=== PATIENT | male | born 1970 | race Caucasian/White ===

== ENCOUNTER 2016-10-22 07:10 | Inpatient (IN) | payer BC ==
[2016-10-22] MEDS ORDERED: ONDANSETRON 4 MG/2 ML VIAL IVP ONE ×2 (07:23→07:26)
[2016-10-22] MEDS ORDERED: MORPHINE SULFATE 4 MG/1 ML IVP ONE ×2 (07:23→07:26)
[2016-10-22] MEDS ORDERED: NITROGLYCERIN 0.4 MG SL TAB (BOTTLE OF 3) SL ONE (07:25)
[2016-10-22] MEDS ORDERED: Sodium Chloride 0.9% 1,000 ML PRIMARY IV ONE (07:26)
[2016-10-22] MEDS ORDERED: ASPIRIN 81 MG (BABY) CHEWABLE TABLET PO ONE (07:26)
[2016-10-22] MEDS: NITROGLYCERIN 0.4 MG SL TAB (BOTTLE OF 3) SL ONE ×4 (07:29→11:48)
--- NOTE | 2016-10-22 07:33 | PDOC ---
Chest Pain HPI - General Chief Complaint: Abdomen Pain Stated Complaint: abd pain Date Seen by Provider: 10/22/16 Time Seen by Provider: 07:28 Source: Patient Exam Limitations: POSITIVE: No limitations Treatment Prior to Arrival: REPORTS: None Nurse's Notes Reviewed & Considered: Yes - History of Present Illness Initial Comments: This very pleasant 46-year-old male comes in this morning complaining of chest pain. Yesterday patient had epigastric and chest pain that he described as gas pain that resolved this morning at 02 100 he awoke with return of pain in the epigastrium radiating through to his back and shoulder blades. His pain he describes as pressure and sharp. He has associated shortness of breath. He states that it is actually the shortness of breath that woke him. He has a history of recent travel 3 weeks ago from [place] to [facility]. He works for the sanitation department at the [email or web address] He denies smoking. He denies any headache, no sore throat, no nausea vomiting or diarrhea, no hematuria dysuria, no rashes. Body Location Affected: REPORTS: Chest, Abdomen Timing: REPORTS: Abrupt Duration: 4-6 hours Severity: Severe Context: REPORTS: Sleep Quality: REPORTS: Aching, "Pain", Stabbing, Pressure Radiation: REPORTS: Shoulder (R), Shoulder (L), Back Associated Symptoms: REPORTS: Shortness of Breath Modifying Factors: improves with: None Reported Similar Symptoms Previously: Yes (yesterday afternoon) Recently seen/treated/hospitalized: No Any Prior Injuries Related to Current Complaint?: No - Patient Home Medications Home Medications: Home Medications Ibuprofen 400 mg PO PRN PRN 09/12/15 - Patient Allergies Allergies/Adverse Reactions: Allergies Allergy/AdvReac Type Severity Reaction Status Date / Time No Known Allergies Allergy Verified 10/22/16 07:23 Past Medical History - heen HEENT History: Other (please comment) Additional HEENT History: WISDOM TEETH REMOVED Cardiovascular History: Denies History Respiratory History: Denies History Gastrointestinal History: GERD Genitourinary History: Denies History Endocrine History: Denies History Musculoskeletal History: Denies History Prosthesis or Implant: No Neurological History: Denies History Blood Disorders: Denies History Psychiatric History: Denies History History of Sexually Transmitted Diseases: No Cancer History: Denies History History of MDRO: No History of Other Communicable Diseases: No Alcohol Use: None Substance Use Type: None Previous Surgical History: Yes Type / Date of Surgery: COLLAR BONE FX/ TOE NAIL REMOVAL BILAT GREAT TOES/ WISDOM TEETH Anesthesia Reactions: No Malignant Hyperthermia: No Significant Family History: Cancer ROS - Limitations ROS Limitations: No Limitations Constitution: REPORTS: Denies Symptoms Cardiovascular: REPORTS: Chest Pain, Heart Palpitations Respiratory: REPORTS: Hurts To Breathe, Shortness Of Breath Neurological: REPORTS: Denies Neuro Symptoms Gastrointestinal: REPORTS: Abdominal Pain Endocrine: REPORTS: Denies Symptoms Musculoskeletal: REPORTS: Back Pain Genitourinary: REPORTS: Denies Symptoms Eyes: REPORTS: Denies Symptoms ENT: REPORTS: Denies Symptoms Skin: REPORTS: Denies Skin Symptoms Lympathic: REPORTS: Denies Lympathic Symptoms Immunologic: POSITIVE: Denies Symptoms Psychiatric: POSITIVE: Denies Psych Symptoms Chest Pain PE - General Appearance General Appearance: REPORTS: Alert, Cooperative, No Evidence of Trauma, Moderate Distress - HEENT HEENT: POSITIVE: Head Inspection Nml, Eyes Inspection Nml, Ears Inspection Nml, Nose Inspection Nml, Oral/Dental Inspect. Nml, Pharynx Inspect. Nml, PERRL, EOMI - Neck Neck: REPORTS: Normal Inspection - Respiratory Respiratory: REPORTS: No Respiratory Distress, Breath Sounds Normal, Chest Non- Tender - Cardiovascular Cardiovascular: REPORTS: Heart Sounds Normal, No Murmur, No Gallop, No Friction Rub, No JVD, Frequent Extrasystoles - Abdomen Abdomen: Soft: (All Quadrants), Normal Bowel Sounds: (All Quadrants), Denies Tenderness: (All Quadrants), No Splenomegaly: (All Quadrants), No Hepatomegaly: (All Quadrants), No Guarding: (All Quadrants), No Rebound: (All Quadrants), No Palpable Pulse: (All Quadrants), No Palpabale Mass: (All Quadrants), No Distention: (All Quadrants), No Rigidity: (All Quadrants) - Skin Skin: REPORTS: Intact, Normal For Race, Warm, Dry, No Rash - Extremities Extremity: Non-Tender: (All Extremities), Normal ROM: (All Extremities), Normal Inspection: (All Extremities), Pelvis Stable: (All Extremities) - Neurological / Psychological Neurological: POSITIVE: Oriented X3, Motor Normal, Sensation Normal Chest Pain Progress - Results Reviewed by me Lab Results:: Laboratory Results 10/22/16 Range/Units 07:17 WBC 5.01 (4.8-10.8) 10^3/uL RBC 5.42 (4.70-6.10) 10^6/uL Hgb 15.9 (14.0-18.0) g/dL Hct 44.6 (42.0-52.0) % MCV 82.3 (80-90) FL MCH 29.3 (27-31) PG MCHC 35.7 (33-37) g/dL RDW Std Deviation 41.9 (39-50) fL RDW Coeff of Lola 13.9 (11.5-14.5) % Plt Count 194 (140-350) 10*3/uL MPV 12.2 (7.4-12.2) FL Immature Gran % (Auto) 0.2 (0-5) % Neut % (Auto) 45.9 L (50-80) % Lymph % (Auto) 37.9 (10-50) % [place] % (Auto) 10.4 (5-15) % Eos % (Auto) 4.0 (0-8) % Baso % (Auto) 1.6 H (0-1) % Immature Gran # (Auto) 0.01 10*3/UL Neut # (Auto) 2.30 10*3/UL Lymph # (Auto) 1.90 10*3/uL [place] # (Auto) 0.52 (0.3-0.8) 10*3/UL Eos # (Auto) 0.20 10*3/UL Baso # (Auto) 0.08 10*3/UL WBC Morphology Comment Normal morphology (NORM) Plt Morphology Comment Normal morphology (NORM) RBC Morph Comment Normal morphology (NORM) D-Dimer 0.19 (0.00-0.59) mg/L Sodium 142 (135-145) meq/L Potassium 3.7 L (3.8-5.2) meq/L Chloride 106 (98-112) meq/L Carbon Dioxide 26 (23-33) meq/L Anion Gap 10 (5-20) BUN 13 (7-22) mg/dL Creatinine 1.4 (0.70-1.50) mg/dL Estimated GFR 55 (>60 ml/min/1.73m(2)) BUN/Creatinine Ratio 9.28 (6-20) Glucose 131 H (78-110) mg/dL Calculated Osmolality 295.0 H (267-292) mOsm/kg Calcium 9.9 (8.7-10.7) mg/dL Magnesium 2.0 (1.6-2.4) mg/dL Total Bilirubin 0.8 (0.3-1.2) mg/dL AST 39 (21-57) IU/L ALT 58 (21-72) IU/L Alkaline Phosphatase 99 (38-126) IU/L Troponin I 0.015 (< 0.040) ng/mL Total Protein 6.7 (6.1-8.0) g/dL Albumin 4.1 (3.5-4.8) g/dL Globulin 2.6 (2.50-4.10) g/dL Albumin/Globulin Ratio 1.50 (1.3-2.0) mg/g TSH 0.574 (0.2700-4.2000) uIU/mL Free T4 1.00 (0.93-1.71) ng/dL - Patient's Progress Pain Medication Addressed: POSITIVE: Yes Re-Examine Time: 08:15 (no improvement) Re-Examine Time:: 09:00 Status: POSITIVE: Unchanged MDM / ED Course: Patient was examined, an IV started, blood drawn and sent to the lab for studies , radiographic examinations and EKG were obtained. Findings: CBC is within normal limits. Comprehensive metabolic panel is unremarkable. TSH and T4 are normal. Chest x-ray per my interpretation is a normal chest radiograph with no acute cardiopulmonary decompensation. EKG per my interpretation shows a sinus bradycardia with a rate of [address] scan chest abdomen pelvis are pending. Assessment: Abdominal pain. Chest pain with normal enzymes and EKG as well as normal d-dimer. Plan: The end of my shift has occurred and I have turned over care to Dr. Dash Valenzuela. for assessment and plan please see his dictation. Quality Measure Initiative: CP/AMI: POSITIVE: EKG, ASA Quality Measure Initiative: CAP: POSITIVE: CXR or CT - Consult Counseled: POSITIVE: Patient, Family, RE: Lab Results Patient Care Time - Estimated PCT Patient Care Time (In Minutes): 45 Vital Signs - Recent Vital Signs Vital Signs: Vital Signs (Last 8 hours) Temp Pulse Resp BP Pulse Ox 10/22/16 07:11 95.6 F L 51 L 20 155/86 100 - VS Reviewed Vital Signs Reviewed: Yes Discharge Clinical Impression: Abdominal pain Discharge Disposition: Other (Care was transferred to Dr. Dash Valenzuela the oncoming emergency room physician at the end of my shift.) Condition: Fair Patient Instructions Given at Discharge: Acute Abdominal Pain (ED)
[2016-10-22 07:36] LABS: BASOPHILS % (AUTO) 1.6 % (0-1); HEMATOCRIT 44.6 % (42.0-52.0); HEMOGLOBIN 15.9 g/dL (14.0-18.0); MEAN CORPUSCULAR HEMOGLOBIN 29.3 PG (27-31); MEAN CORPUSCULAR HGB CONC 35.7 g/dL (33-37); MEAN CORPUSCULAR VOLUME 82.3 FL (80-90); MEAN PLATELET VOLUME 12.2 FL (7.4-12.2); MONOCYTES # (AUTO) 0.52 10*3/UL (0.3-0.8); MONOCYTES % (AUTO) 10.4 % (5-15); NEUTROPHILS % (AUTO) 45.9 % (50-80); RED BLOOD COUNT 5.42 10^6/uL (4.70-6.10)
[2016-10-22 07:37] LABS: BASOPHILS # (AUTO) 0.08 10*3/UL; PLATELET MORPHOLOGY COMMENT NORMAL MORPHOLOGY (NORM); RBC MORPHOLOGY COMMENT NORMAL MORPHOLOGY (NORM); WBC MORPHOLOGY COMMENT NORMAL MORPHOLOGY (NORM)
--- NOTE | 2016-10-22 07:37 | EKG ---
[address] [address] Measurements Intervals [place] Rate: 51 P: 8 NC: 161 QRS: 63 QRSD: 98 T: 32 QT: 422 QTc: 398 Interpretive Statements SINUS BRADYCARDIA No previous ECG available for comparison Electronically Signed On 10-23-16 08:05:46 MDT by Víctor Gonsalez MD [email or web address]
[2016-10-22 07:40] LABS: BUN/CREATININE RATIO 9.28 (6-20); CALCIUM 9.9 mg/dL (8.7-10.7); SERUM ALBUMIN 4.1 g/dL (3.5-4.8)
[2016-10-22] MEDS ORDERED: KETOROLAC 15 MG/1 ML VIAL IVP ONE (07:50)
[2016-10-22] MEDS ORDERED: LORazepam 2 MG/1 ML VIAL IVP ONE (07:51)
[2016-10-22] MEDS ORDERED: Famotidine Inj 20 MG in Normal Saline Flush 10 ML IVP ONE (08:24)
[2016-10-22] MEDS ORDERED: HYDROmorphone 2 MG/1 ML IVP ONE (08:24)
--- NOTE | 2016-10-22 09:58 | DI ---
HISTORY: Chest pain. COMPARISON: None. TECHNIQUE: Contiguous transaxial computed tomographic images were obtained of the Chest using pulmon belén embolism protocol with IV contrast. Coronal and sagittal reformat images were performed. FINDINGS: LUNGS: Clear. No consolidation, pleural effusion or pneumothorax. MEDIASTINUM: No acute pulmonary emboli or thoracic aortic dissection. The heart and great vessels a re normal. No mediastinal lymphadenopathy. The airway is patent. UPPER ABDOMEN: A limit evaluation of the upper abdomen was performed. There is cholelithiasis. BONES: Normal for age. IMPRESSION: 1. No acute pulmonary emboli or thoracic aortic dissection. 2. No consolidation, pleural effusion or pneumothorax.
--- NOTE | 2016-10-22 10:24 | DI ---
HISTORY: Chest pain. COMPARISON: None. FINDINGS: The heart is within normal limits with slight accentuation of the pulmonary vasculature in the bilateral lung bases. The lung rodriguez are otherwise essentially clear. IMPRESSION: 1. Slight accentuation of the pulmonary vasculature in bilateral lung bases.
--- NOTE | 2016-10-22 10:36 | DI ---
EXAM: CT Abdomen and Pelvis With Contrast TECHNIQUE: Contiguous transaxial computed tomographic images were obtained of the abdomen and pelvis per routine protocol with IV contrast. Coronal and sagittal reformat images were performed. COMPARISON: None. FINDINGS: LUNG BASES: Clear INFERIOR MEDIASTINUM: Unremarkable. LIVER: Normal in size and attenuation with no focal abnormalities. GALLBLADDER AND BILE DUCTS: There is cholelithiasis including a stone seen at the gallbladder neck. No biliary dilatation. SPLEEN: Normal in size and attenuation with no focal abnormalities. PANCREAS: Normal in size and attenuation with no focal abnormalities. ADRENALS: Normal in size and attenuation with no focal abnormalities. : Kidneys enhance normally with no focal abnormalities. No evidence of urinary obstruction or obst ructing urinary calculi. Ureters are normal throughout their course. Urinary bladder is within norm al limits. GI: No evidence of bowel obstruction or focal inflammation. No focal bowel wall thickening. Very m ild diverticulosis of the sigmoid colon. Normal appendix in the right lower quadrant. PELVIS: Within normal limits with no mass identified. VESSELS: Aorta is normal in size with no evidence of aneurysm or rupture. BONES: No acute bony abnormality. No suspicious osteolytic or osteoblastic lesion. Old healed frac ture of the left pubic rami. Moderate degenerative changes of the hips. Transitional lumbrosacral a natomy. SOFT TISUES: Unremarkable. IMPRESSION: 1. There is cholelithiasis including a stone seen at the gallbladder neck. Ultrasound is recommende d if there is concern for acute cholecystitis.
[2016-10-22] MEDS ORDERED: NORMAL SALINE 10 ML SYRINGE FLUSH IVP PRN ×2 (11:38→12:01)
[2016-10-22] MEDS ORDERED: LIDOCAINE W/ SODIUM BICARB 0.5 ML SYR SUBD PRN ×2 (11:38→12:01)
[2016-10-22] MEDS ORDERED: ONDANSETRON 4 MG/2 ML VIAL IVP PRN (11:38)
--- NOTE | 2016-10-22 11:51 | PDOC ---
History and Physical - History of Present Illness Date and Time of Service: 10/22/2016 11:46 AM Chief Complaint: Epigastric pain that started 2 AM this morning History of Present Illness: This is a 46 years old male with no significant past medical history except reflux who came into the hospital because of epigastric pain. He said yesterday he started to have some discomfort is his abdomen and he attributed that to gas and he was able to get rid of some of the gas and that's relieved his discomfort then he woke up this morning about 2 AM with pain in the upper abdomen and went to his back, he described the pain as severe constant 9 out of 10 he was sweating and he thought he needed to have a bowel movement had 2 small bowel movement however the pain was not relieved so he took some ibuprofen but he continued to have the pain and because of that he came into the ER. He never had this kind of pain before, taking a deep breath would make the pain worse, evaluation in the ER revealed normal CBC and chemistry, had a CT of the abdomen and pelvis and also CT of the chest did show evidence of cholelithiasis and one of the stones in the neck of the gallbladder. He did receive multiple pain medication and that helped lessen his pain. Because of the finding of the gallstones it was discussed with the surgeon who suggested admission. Currently he rates his pain maybe 2 out of 10. There is no nausea or vomiting or diarrhea. No other symptoms. Past Medical History Medical History: GERD on Nexium Surgical History: [place] teeth removal Family History: Reviewed an Not Pertinent Past Social History: He doesn't smoke, doesn't drink, no drugs. Tobacco Use: Never Smoker Substance Use Type: None Alcohol Use: None Medication / Allergies Home Medications: Home Medications Medication Instructions Recorded Confirmed Type Ibuprofen 400 mg PO PRN PRN 09/12/15 10/22/16 History Allergies/Adverse Reactions: Allergies Allergy/AdvReac Type Severity Reaction Status Date / Time No Known Allergies Allergy Verified 10/22/16 07:23 Review of Systems - Review of Systems All Systems: Reviewed & No Additional Complaints Except as Stated Exam - Vitals Vital Signs: Vital Signs Temperature 97.8 F Temperature Source Temporal Artery Scan Pulse Rate [Pulse Oximeter 50 Right] Pulse Rate 43 Respiratory Rate 19 Blood Pressure [Left Arm] 122/61 Blood Pressure 112/66 Pulse Ox 100 Oxygen Delivery Method Room Air Height 6 ft 2 in Weight 267 lb 9.6 oz - General General Appearance: POSITIVE: No Acute Distress, Cooperative, Obese - Head Head Exam: POSITIVE: Normal Inspection, Atraumatic - Eye Eye Exam: POSITIVE: Normal Appearance - ENT ENT Exam: POSITIVE: Normal Exam - Neck Neck Exam: POSITIVE: Normal Inspection - Respiratory Respiratory Exam: POSITIVE: Clear to Auscultation - Bilaterally - Cardiovascular Cardiovascular Exam: POSITIVE: RRR - GI/Abdominal GI/Abdominal Exam: POSITIVE: Normal Bowel Sounds, Non Distended, Soft, No Organomegaly. NEGATIVE: Rebound Additional GI/Abdominal Exam Details: Some mild tenderness in the epigastrium and the right upper quadrant - Rectal Rectal Exam: POSITIVE: Deferred - External Exam: POSITIVE: Deferred - Extremities Extremities Exam: POSITIVE: Normal Inspection, Full ROM - Back Back Exam: POSITIVE: Normal Inspection - Neurological Neurological Exam: POSITIVE: Alert, Oriented x 3, CN II-XII Intact, Speech Intact / Clear, Moves All Extremities Equally - Psychiatric Psychiatric Exam: POSITIVE: Normal Affect - Integumentary Integumentary Exam: POSITIVE: Normal Color Results - Labs CBC and BMP: 10/22/16 07:17 10/22/16 07:17 - EKG Data -: EKG Interpreted by Me (EKG showed sinus bradycardia) - Imaging Status: Report Reviewed by Me (CT of the abdomen and pelvis shows cholelithiasis including a stone seen at the gallbladder neck, CT of the chest no evidence of PE, no consolidation) Assessment and Plan - Patient Problems (1) Abdominal pain Current Visit: Yes Status: Acute Comment: This looks secondary to cholelithiasis, did discuss that with Dr. Saul his plan to do surgery tomorrow. Will write for pain medication put on some IV fluid. (2) Bradycardia Current Visit: Yes Status: Acute Comment: There is sinus bradycardia noted on the EKG when he came in. His first troponin is negative and his description of the pain does not fit cardiac etiology. There are no EKG changes apart from the bradycardia noted. Will repeat his enzymes. Will watch his rhythm. TSH is normal.
--- NOTE | 2016-10-22 12:01 | CONSULT ---
Consult Note - Consult Consult Date: 10/22/16 Reason for Consult: PreOp Consulation : General Surgery Requesting Physician: Dr. Moody and Dr. Bowling Primary Care Provider: Edison Montiel MD - History of Present Illness History of Present Illness: This 46-year-old male who has a one-day history of right upper quadrant abdominal pain that radiates straight to his back. There is no fever no chills no nausea vomiting diarrhea constipation hematochezia and no hematemesis no melena. He denies fever or chills. Denies ever being jaundice. Patient's laboratory values are unremarkable. Patient is CT scan of the abdomen shows cholelithiasis with a stone stuck in the neck of the gallbladder no other abnormal pathology seen. Had lifted a CT scan agree with the radiologist's interpretation Review of Systems - Constitutional Constitutional: REPORTS: Negative System Review - Integumentary Integumentary: REPORTS: Negative System Review - Ear/Nose Exam Ear/Nose Exam: REPORTS: Negative System Review - Respiratory Respiratory: REPORTS: Negative System Review - Cardiovascular Cardiovascular: REPORTS: Negative System Review - Gastrointestinal Gastrointestinal / Abdominal: REPORTS: Negative System Review, Abdominal Pain - Genitourinary Genitourinary: REPORTS: Negative System Review - Musculoskeletal Musculoskeletal: REPORTS: Negative System Review - Hematlogic / Lymphatic Hematologic / Lymphatic: REPORTS: Negative System Review - Neurological Neurologic: REPORTS: Negative System Review - Psychiatric Psychiatric: DENIES: Anhedonia, Anxiety, Depressed, Hopelessness, Hospitalization, Negative System Review, Other, Panic, Sadness, See HPI, Suicidality, Tearfullness Past Medical History Medical History: GERD on Nexium Surgical History: [place] teeth removal Family History: Reviewed an Not Pertinent Past Social History: He doesn't smoke, doesn't drink, no drugs. Tobacco Use: Never Smoker Substance Use Type: None Alcohol Use: None Medication / Allergies Home Medications: Home Medications Medication Instructions Recorded Confirmed Type Ibuprofen 400 mg PO PRN PRN 09/12/15 10/22/16 History Allergies/Adverse Reactions: Allergies Allergy/AdvReac Type Severity Reaction Status Date / Time No Known Allergies Allergy Verified 10/22/16 07:23 Exam - Vitals Vital Signs: Vital Signs Temperature 97.8 F Temperature Source Temporal Artery Scan Pulse Rate [Pulse Oximeter 50 Right] Pulse Rate 43 Respiratory Rate 19 Blood Pressure [Left Arm] 122/61 Blood Pressure 112/66 Pulse Ox 100 Oxygen Delivery Method Room Air Height 6 ft 2 in Weight 121.381 kg - General General Appearance: POSITIVE: No Acute Distress, Cooperative - Head Head Exam: POSITIVE: Normal Inspection - Eye Eye Exam: POSITIVE: PERRL, EOMI - Neck Neck Exam: POSITIVE: Full ROM - Respiratory Respiratory Exam: POSITIVE: Clear to Auscultation - Bilaterally, Breathing Non Labored - Cardiovascular Cardiovascular Exam: POSITIVE: RRR, No Murmur - GI/Abdominal GI/Abdominal Exam: POSITIVE: Normal Bowel Sounds, Non Tender, Non Distended - Rectal Rectal Exam: POSITIVE: Deferred - External Exam: POSITIVE: Deferred - Extremities Extremities Exam: POSITIVE: Full ROM - Back Back Exam: POSITIVE: Full ROM - Neurological Neurological Exam: POSITIVE: Alert, Oriented x 3, Reflexes Normal, Normal Gait, CN II-XII Intact, No Facial Droop, Speech Intact / Clear, Moves All Extremities Equally, No Fasciculations, No Clonus - Psychiatric Psychiatric Exam: POSITIVE: Normal Affect - Integumentary Integumentary Exam: POSITIVE: Normal Color Results - Labs CBC and BMP: 10/22/16 07:17 10/22/16 07:17 Assessment and Plan - Patient Problems (1) Abdominal pain Current Visit: Yes Status: Acute (2) Cholelithiasis Current Visit: Yes Status: Acute - Assessment / Plan Additional Assessment/Plan Details: I would recommend the patient having a laparoscopic cholecystectomy. I have discussed the pathophysiology about gallstones and gallbladder disease. I have discussed the risk of surgery and the potential complications that could occur with the surgery. I also discussed alternative treatment options. I have gone over the surgical technique with the patient. The patient understands this information. I also discussed the difference between single site using the da Sunitha surgery and also the traditional laparoscopic surgery. The patient be scheduled at the first available date. Questions that the patient had were answered. The patient evaluate if the bradycardia make sure that there is no heart block are he's having a silent VT. Patient is on telemetry and will have serial troponins
[2016-10-22] MEDS ORDERED: Lactated Ringers 1,000 ML PRIMARY IV SCH (12:15)
[2016-10-22] MEDS ORDERED: CefOXitin Inj 2 GM in Sodium Chloride 0.9% 100 ML IV SCH (12:15)
[2016-10-22] MEDS: Sodium Chloride 0.9% 1,000 ML PRIMARY IV SCH ×2 (12:37→19:55)
[2016-10-22] MEDS: MORPHINE SULFATE 2 MG/1 ML IVP PRN ×3 (12:54→18:38)
--- NOTE | 2016-10-22 14:09 | PDOC ---
Transfer of Care - Care Accepted Time Care Transferred: 09:00 Report from Transferring Physician Received: Yes (Dr. Osorio) MDM / ED Course: The patient is a 46-year-old male who presents to the emergency department with upper abdominal/lower chest pain that radiates to his back. He was initially evaluated per Dr. Osorio. On initial presentation the patient appeared to be having significant pain. His initial EKG showed sinus bradycardia with no acute ST segment or T-wave changes. He was given several doses of morphine and Zofran without really any significant relief. His initial blood work including CBC, CMP, lipase, d-dimer and troponin were all unremarkable. Because of continued severe pain the patient received IV Dilaudid and Pepcid and CTA of the chest and CT of the abdomen and pelvis with IV contrast was ordered. These studies are pending at the time that patient care was transferred. The patient states that he had some similar pain yesterday although it was not as severe and lasted only a short period of time. He is generally healthy otherwise. He denies any history of hypertension, diabetes, hyperlipidemia or heart disease. He did just recently travel to and from [place]. He has had previous EGD about a year and a half ago which he states was unremarkable. He does take Nexium. He does admit to drinking a fair amount of ice tea. He does not have any tobacco usage. Home Medications: Home Medications Ibuprofen 400 mg PO PRN PRN 09/12/15 Allergies/Adverse Reactions: Allergies No Known Allergies Allergy (Verified 10/22/16 07:23) Vital Signs Reviewed: Yes Nurse's Notes Reviewed & Considered: Yes - Pending Patient Care Items Pending Patient Care Items: POSITIVE: CT / MRI Results - Re-Evaluation of Patient Disposition of Patient: POSITIVE: Admitted Counseled: POSITIVE: Patient, Family, RE: Lab Results, RE: Radiology Results, RE : DX Clinical Impression Documented: Yes - Results Reviewed Lab Results: Laboratory Results 10/22/16 Range/Units 07:17 WBC 5.01 (4.8-10.8) 10^3/uL RBC 5.42 (4.70-6.10) 10^6/uL Hgb 15.9 (14.0-18.0) g/dL Hct 44.6 (42.0-52.0) % MCV 82.3 (80-90) FL MCH 29.3 (27-31) PG MCHC 35.7 (33-37) g/dL RDW Std Deviation 41.9 (39-50) fL RDW Coeff of Lola 13.9 (11.5-14.5) % Plt Count 194 (140-350) 10*3/uL MPV 12.2 (7.4-12.2) FL Immature Gran % (Auto) 0.2 (0-5) % Neut % (Auto) 45.9 L (50-80) % Lymph % (Auto) 37.9 (10-50) % [place] % (Auto) 10.4 (5-15) % Eos % (Auto) 4.0 (0-8) % Baso % (Auto) 1.6 H (0-1) % Immature Gran # (Auto) 0.01 10*3/UL Neut # (Auto) 2.30 10*3/UL Lymph # (Auto) 1.90 10*3/uL [place] # (Auto) 0.52 (0.3-0.8) 10*3/UL Eos # (Auto) 0.20 10*3/UL Baso # (Auto) 0.08 10*3/UL WBC Morphology Comment Normal morphology (NORM) Plt Morphology Comment Normal morphology (NORM) RBC Morph Comment Normal morphology (NORM) D-Dimer 0.19 (0.00-0.59) mg/L Sodium 142 (135-145) meq/L Potassium 3.7 L (3.8-5.2) meq/L Chloride 106 (98-112) meq/L Carbon Dioxide 26 (23-33) meq/L Anion Gap 10 (5-20) BUN 13 (7-22) mg/dL Creatinine 1.4 (0.70-1.50) mg/dL Estimated GFR 55 (>60 ml/min/1.73m(2)) BUN/Creatinine Ratio 9.28 (6-20) Glucose 131 H (78-110) mg/dL Calculated Osmolality 295.0 H (267-292) mOsm/kg Calcium 9.9 (8.7-10.7) mg/dL Magnesium 2.0 (1.6-2.4) mg/dL Total Bilirubin 0.8 (0.3-1.2) mg/dL AST 39 (21-57) IU/L ALT 58 (21-72) IU/L Alkaline Phosphatase 99 (38-126) IU/L Troponin I 0.015 (< 0.040) ng/mL Total Protein 6.7 (6.1-8.0) g/dL Albumin 4.1 (3.5-4.8) g/dL Globulin 2.6 (2.50-4.10) g/dL Albumin/Globulin Ratio 1.50 (1.3-2.0) mg/g Lipase 72 (23-300) IU/L TSH 0.574 (0.2700-4.2000) uIU/mL Free T4 1.00 (0.93-1.71) ng/dL EKG Interpreted/Reviewed By Me:: Yes EKG Interpretation:: POSITIVE: Normal QRS, Normal ST/T, Other (sinus bradycardia with no evidence of block, ST segment or T-wave changes) - Consult Consult (If Yes, Name of Consulting MD & Time Called): Yes (Dr. Saul, will see patient in the hospital) Recommendations:: On my reevaluation the patient the patient had just returned from [place]. He did finally get some relief after administration of Pepcid and Dilaudid however he states he still had some significant epigastric discomfort. He remained bradycardic with a rate in the 40s when he is awake and talking, this dips down into the upper 30s when he is asleep. His blood pressure remains normal. CT scan of the abdomen and pelvis as well as CT of the chest reveals no evidence of PE, aortic dissection area and he does however have multiple gallstones with one large stone at the neck of the gallbladder, no other acute findings per radiologist. The patient's pain at this point is most likely secondary to cholelithiasis and biliary colic. He is still having significant pain and therefore Dr. Saul was consulted from general surgery. He recommended admission and will likely make preparations to do a cholecystectomy tomorrow. Because of the patient's bradycardia he recommended having the hospitalist admit the patient and evaluate this. At this time the patient's bradycardia is thought to be attributed to vagal stimulation from pain. He does not have any significant cardiac history, troponin is normal and there is no evidence of block. He does not take any medications that would slow his heart rate. Dr. Moody was contacted and he has agreed to admit the patient. Patient Care Time - Estimated PCT Patient Care Time (In Minutes): 30 Vital Signs - Recent Vital Signs Vital Signs: Vital Signs (Last 8 hours) Temp Pulse Pulse Pulse Resp BP BP 10/22/16 11:23 96.7 F L 43 L 16 112/66 10/22/16 11:17 45 L 10/22/16 07:11 95.6 F L 51 L 20 155/86 Pulse Ox 10/22/16 11:23 95 10/22/16 11:17 10/22/16 07:11 100 - VS Reviewed Vital Signs Reviewed: Yes Discharge Clinical Impression: Biliary colic, Abdominal pain, Sinus bradycardia Discharge Disposition: Admit to Inpatient Condition: Fair Date Decision to Admit to Inpatient: 10/22/16 Time Decision to Admit to Inpatient: 10:45
[2016-10-23] MEDS: Sodium Chloride 0.9% 1,000 ML PRIMARY IV SCH ×2 (02:13→10:50)
[2016-10-23 05:30] LABS: BASOPHILS # (AUTO) 0.04 10*3/UL; BASOPHILS % (AUTO) 0.5 % (0-1); EOSINOPHILS # (AUTO) 0.12 10*3/UL; EOSINOPHILS % (AUTO) 1.5 % (0-8); HEMATOCRIT 42.4 % (42.0-52.0); HEMOGLOBIN 14.6 g/dL (14.0-18.0); MEAN CORPUSCULAR HEMOGLOBIN 29.2 PG (27-31); MEAN CORPUSCULAR HGB CONC 34.4 g/dL (33-37); MEAN CORPUSCULAR VOLUME 84.8 FL (80-90); MEAN PLATELET VOLUME 12.7 FL (7.4-12.2); MONOCYTES # (AUTO) 0.83 10*3/UL (0.3-0.8); MONOCYTES % (AUTO) 10.4 % (5-15); NEUTROPHILS # (AUTO) 5.14 10*3/UL; NEUTROPHILS % (AUTO) 64.7 % (50-80); PLATELET MORPHOLOGY COMMENT NORMAL MORPHOLOGY (NORM); RBC MORPHOLOGY COMMENT NORMAL MORPHOLOGY (NORM); WBC MORPHOLOGY COMMENT NORMAL MORPHOLOGY (NORM)
[2016-10-23 05:31] LABS: BLOOD UREA NITROGEN 10 mg/dL (7-22); BUN/CREATININE RATIO 9.09 (6-20); CALCIUM 8.6 mg/dL (8.7-10.7); EST GLOMERULAR FILTRATION > 60 (>60 ml/min/1.73m(2)); LIPASE 27 IU/L (23-300); SERUM ALBUMIN 3.5 g/dL (3.5-4.8)
[2016-10-23] MEDS ORDERED: CefOXitin Inj 2 GM in Sodium Chloride 0.9% 100 ML IV ONE (06:00)
[2016-10-23] MEDS ORDERED: Lactated Ringers 1,000 ML PRIMARY IV SCH ×2 (06:00→13:31)
[2016-10-23] MEDS ORDERED: Sodium Chloride 0.9% vial 20 ML ONE (07:51)
[2016-10-23] MEDS ORDERED: BUPIVACAINE 0.25% W/ EPI - 10 ML VIAL ONE (07:51)
--- NOTE | 2016-10-23 08:11 | PDOC(PROG) ---
Date and Time of Service: 10/23/2016 8:10 AM Interval History: Subjective His abdominal pain is gone, no chest pain no shortness of breath. Had some headaches but otherwise no other symptoms. Objective : Data - Labs CBC and BMP: 10/23/16 04:50 10/23/16 04:50 Labs - Last 24 Hours: Laboratory Results 10/22/16 10/22/16 10/23/16 Range/Units 13:35 21:23 04:50 WBC 7.95 (4.8-10.8) 10^3/uL RBC 5.00 (4.70-6.10) 10^6/uL Hgb 14.6 (14.0-18.0) g/dL Hct 42.4 (42.0-52.0) % MCV 84.8 (80-90) FL MCH 29.2 (27-31) PG MCHC 34.4 (33-37) g/dL RDW Std Deviation 42.6 (39-50) fL RDW Coeff of Lola 14.0 (11.5-14.5) % Plt Count 161 (140-350) 10*3/uL MPV 12.7 H (7.4-12.2) FL Immature Gran % (Auto) 0.3 (0-5) % Neut % (Auto) 64.7 (50-80) % Lymph % (Auto) 22.6 (10-50) % [place] % (Auto) 10.4 (5-15) % Eos % (Auto) 1.5 (0-8) % Baso % (Auto) 0.5 (0-1) % Immature Gran # (Auto) 0.02 10*3/UL Neut # (Auto) 5.14 10*3/UL Lymph # (Auto) 1.80 10*3/uL [place] # (Auto) 0.83 H (0.3-0.8) 10*3/UL Eos # (Auto) 0.12 10*3/UL Baso # (Auto) 0.04 10*3/UL WBC Morphology Comment Normal morphology (NORM) Plt Morphology Comment Normal morphology (NORM) RBC Morph Comment Normal morphology (NORM) Sodium 139 (135-145) meq/L Potassium 3.9 (3.8-5.2) meq/L Chloride 106 (98-112) meq/L Carbon Dioxide 25 (23-33) meq/L Anion Gap 8 (5-20) BUN 10 (7-22) mg/dL Creatinine 1.1 (0.70-1.50) mg/dL Estimated GFR > 60 (>60 ml/min/1.73m(2)) BUN/Creatinine Ratio 9.09 (6-20) Glucose 89 (78-110) mg/dL Calculated Osmolality 285.0 (267-292) mOsm/kg Calcium 8.6 L (8.7-10.7) mg/dL Total Bilirubin 2.1 H (0.3-1.2) mg/dL AST 30 (21-57) IU/L ALT 46 (21-72) IU/L Alkaline Phosphatase 79 (38-126) IU/L Troponin I < 0.012 0.014 (< 0.040) ng/mL Total Protein 5.9 L (6.1-8.0) g/dL Albumin 3.5 (3.5-4.8) g/dL Globulin 2.4 L (2.50-4.10) g/dL Albumin/Globulin Ratio 1.40 (1.3-2.0) mg/g Lipase 27 (23-300) IU/L Objective : Exam - General General Appearance: No Acute Distress, Cooperative, Obese - Head Head Exam: Normal Inspection, Atraumatic - Eye Eye Exam: Normal Appearance - ENT ENT Exam: Normal Exam - Neck Neck Exam: Normal Inspection - Respiratory Respiratory Exam: Clear to Auscultation - Bilaterally - Cardiovascular Cardiovascular Exam: RRR - GI/Abdominal GI/Abdominal Exam: Normal Bowel Sounds, Non Tender, Non Distended, Soft - Rectal Rectal Exam: Deferred - External Exam: Deferred - Extremities Extremities Exam: Normal Inspection - Back Back Exam: Normal Inspection - Neurological Neurological Exam: Alert, Oriented x 3, CN II-XII Intact, Speech Intact / Clear , Moves All Extremities Equally - Psychiatric Psychiatric Exam: Normal Affect Assessment and Plan - Patient Problems (1) Abdominal pain Current Visit: Yes Status: Acute Comment: This is secondary to cholelithiasis, his pain is resolved. He is scheduled for surgery today. He is nothing by mouth. There is minimal rise in the bilirubin, will check the direct level to see whether this is predominantly indirect and may be secondary to fasting. (2) Bradycardia Current Visit: Yes Status: Acute Comment: Still sinus bradycardia. Troponin remained negative. As I said yesterday I spoke with the health support specialist and does not think he needs more testing.
[2016-10-23] MEDS ORDERED: LIDOCAINE MPF 2% - 5 ML (20 MG/1 ML) ONE (10:38)
[2016-10-23] MEDS ORDERED: fentaNYL Inj 250 MCG/5 ML VIAL ONE (10:38)
[2016-10-23] MEDS ORDERED: MIDAZOLAM 5 MG/1 ML ONE (10:38)
[2016-10-23] MEDS ORDERED: ROCURONIUM 10 MG/1 ML - 5 ML VIAL IVP ONE (10:39)
[2016-10-23] MEDS ORDERED: Iothalamate Meglumine 30 ML VIAL IV ONE (10:41)
[2016-10-23] MEDS ORDERED: Bacteriostatic NaCl Inj 30ml Vial ONE (10:41)
[2016-10-23] MEDS ORDERED: PANTOPRAZOLE IV 40 MG VIAL ONE (10:48)
[2016-10-23] MEDS ORDERED: Sodium Chloride 0.9% 100 ML IV ONE (10:52)
[2016-10-23] MEDS ORDERED: Lactated Ringers 1,000 ML PRIMARY IV ONE (11:23)
[2016-10-23] MEDS ORDERED: KETOROLAC 30 MG/1 ML VIAL ONE (11:44)
[2016-10-23] MEDS ORDERED: SUGAMMADEX SODIUM 200 MG/2 ML VIAL IV ONE (11:44)
--- NOTE | 2016-10-23 12:36 | GEN.OPNOTE ---
Operative Note Surgery Date: 10/23/16 Preoperative Diagnosis: Cholelithiasis Postoperative Diagnosis: Cholelithiasis with necrosis of the gallbladder wall Procedure: Laparoscopic cholecystectomy with intraoperative cholangiogram Surgeon: Carson Saul MD Supervisor Stone: Izaiah Brooks MD Anesthesia Provider: Marty Headley CRNA Anesthesia Type: General Estimated Blood Loss (mL): 10 Fluids: Mefoxin 2 g. Lactated Ringer's please anesthesia notes in EMR Pathology: Gallbladder was sent with multiple large black stones Indications: Patient came in with right upper quadrant abdominal pain CT scan showed the patient had cholelithiasis without evidence of acute cholecystitis Findings: Patient had necrotic gallbladder. There is no stone seen in the common bile duct on intraoperative cholangiogram Complications: None Operative Summary: Patient was brought in the operating room. Placed in supine position. Given general anesthetic. Was prepped draped sterile fashion. Quarter percent Marcaine was infiltrated at all trocar sites. Small incision made below the umbilicus. Veress needle inserted pneumoperitoneum obtained. After adequate pneumoperitoneum a 10 mm trocar was placed using the Visiport. Under direct laparoscopic visualization a 10 mm trocar subxiphoid and 2 -5 mm in the midclavicular and midaxillary line. Appropriate instrument were placed. The gallbladder appeared to be necrotic. Gallbladder grasped at the fundus retracted over the liver edge. Gallbladder was grasped at Yolanda's pouch. The cystic duct was dissected free. The cystic duct was clipped near the gallbladder. Intraoperative cholangiocatheter was placed through an angiocatheter. I then opened up the cystic duct with scissors. Intraoperative cardiogram catheter was placed. C-arm was brought in an intraoperative cholangiogram was then done with the aid of the C-arm. There is no evidence of obstruction of the common bile duct and proper anatomy was identified. The C- arm was removed. The cholangiogram was then removed. The cystic duct was doubly clipped and divided. Likewise the cystic artery was dissected free 3 hemoclips placed and divided. The gallbladder was dissected off liver's edge using electrocautery. There is an opening made into the gallbladder that drop multiple black stones. The smaller stones were removed with stone forceps. The 3 larger ones were placed where they can be retrieved. The gallbladder was placed in a laparoscopic retrieval bag. Likewise the remaining stones were placed in the bag. The gallbladder was then removed through a subumbilical incision. The abdominal cavity was irrigated until clear. The trochars were removed. The umbilicus incision was closed with 0 Vicryl suture to the fascia. The skin was reapproximated using 4-0 Vicryl simple sutures. The remainder trocar sites were 5 mm defects we will close. The remainder skin incisions closed with 4-0 Vicryl. Steri-Strips applied sterile dressings applied. Patient transferred to recovery room in stable condition. Counts were correct Patient Problems - Patient Problem List (1) Abdominal pain Current Visit: Yes Status: Acute (2) Cholelithiasis Current Visit: Yes Status: Acute
[2016-10-23] MEDS ORDERED: NORMAL SALINE 10 ML SYRINGE FLUSH IVP PRN (12:39)
[2016-10-23] MEDS: HYDROmorphone 2 MG/1 ML IVP PRN ×2 (12:56→13:25)
[2016-10-23] MEDS ORDERED: MORPHINE SULFATE 2 MG/1 ML IVP PRN (13:31)
[2016-10-23] MEDS ORDERED: HYDROcodone-APAP 7.5 MG-325 MG TABLET PO PRN (13:31)
[2016-10-23] MEDS ORDERED: ONDANSETRON 4 MG/2 ML VIAL IVP PRN (13:31)
[2016-10-23] MEDS ORDERED: IBUPROFEN 400 MG TABLET PO PRN (14:17)
--- NOTE | 2016-10-23 14:40 | DI ---
XR CHOLANGIOGRAM INTRAOP,10/23/2016 9:11 AM: Clinical History: Gallstones Previous Exam: None at this facility. Findings: A normal-appearing common bile duct without filling defects. The pancreatic duct is normal throughout its visualized portions. There is free flow of contrast into the proximal duodenum. Impression: Normal intraoperative cholangiogram.
[2016-10-23 15:21] VITALS: TEMP 97.4
--- NOTE | 2016-10-23 17:27 | DCSUMMARY ---
Discharge Summary Admit Date: 10/22/16 Discharge Date: 10/23/16 Admitting Diagnosis: cholelithiasis, bradycardia Discharge Diagnosis: Gangrenous gallbladder with cholelithiasis Primary Surgery and Date: Laparoscopic cholecystectomy on 10/23/2016 Hospital Course: Patient is admitted the hospital because of acute abdominal pain and cholelithiasis. He had bradycardia this was followed with serial troponins which were normal. EKG is unremarkable. Telemetry did not show any heart blocks. He was taken to surgery on the . He is found to have a gangrenous gallbladder. Gallbladder is moving without any difficulty. Postop bleed did very well. He was tolerating pain adequately. Tolerating diet no nausea vomiting. Is okay to be discharged day of surgery. Since there was no infection, the 1 dose of perioperative antibiotic should be sufficient. Exam - Vitals Vital Signs: Vital Signs Temperature 97.4 F Temperature Source Temporal Artery Scan Pulse Rate [Apical] 45 Pulse Rate [Pulse Oximeter 48 Right] Pulse Rate 69 Respiratory Rate 18 Blood Pressure [Left Arm] 99/56 Blood Pressure 100/57 Pulse Ox 98 Oxygen Flow Rate 2 Oxygen Flow Rate 2 Oxygen Delivery Method Nasal Cannula Height 6 ft 2 in Weight 121.381 kg - General General Appearance: POSITIVE: No Acute Distress, Cooperative - Eye Eye Exam: POSITIVE: PERRL, EOMI - Respiratory Respiratory Exam: POSITIVE: Clear to Auscultation - Bilaterally - Cardiovascular Cardiovascular Exam: POSITIVE: RRR - GI/Abdominal GI/Abdominal Exam: POSITIVE: Normal Bowel Sounds, Non Tender, Non Distended, Soft Patient Problems - Patient Problem List (1) Abdominal pain Current Visit: Yes Status: Acute (2) Cholelithiasis Current Visit: Yes Status: Acute
[2016-10-23 17:29] VITALS: RESP 16
== END 2016-10-23 18:56 | disposition home or self-care (01) | DRG 419 ==
LOC: ER 07:10 → MED/SURG 10:52 → OPS 10-23 10:25 → MED/SURG 10-23 13:30
PROVIDERS: ADMIT Internal Medicine; ATTEND Internal Medicine
PROC: BF00YZZ Plain Radiography of Bile Ducts using Other Contrast (ICD-10-PCS; 2016-10-23)
PROC: 0FT44ZZ Resection of Gallbladder, Percutaneous Endoscopic Approach (ICD-10-PCS; principal; 2016-10-23 09:45)
DX: K80.00 Calculus of gallbladder with acute cholecystitis without obstruction (principal); R00.1 Bradycardia, unspecified
CPT/HCPCS: 36415; 71020; 71275; 74177; 74300; 80053; 82248; 83690; 83735; 84439; 84443; 84484; 85025; 85379; 93005; 93010; 94761; 96361; 96374; 96375; 99284; A4216; J1170; J1885; J2001; J2060; J2250; J2270; J2405; J3010; J3490; J7030; J7050; J7120